=== PATIENT | male | born 1975 | race Caucasian/White ===

== ENCOUNTER 2023-02-09 07:28 | Outpatient (OUT) | payer OTHER, SELFPAY ==
--- NOTE | 2023-02-09 07:35 | CA_ITS ---
[facility] Test Date: 2023-02-27 Pat Name: BHAKTI RINCON Department: Room: - Gender: Male [employer]: : 1975 Requested By: KARLY CONRAD Order Number: [id number] Reading MD: RICKIE PHAN Interpretive Statements Predominant rhythm is sinus with average rate of 60 bpm Tachycardia - max rate of 173 bpm - 3 episodes of PSVT w/ longest duration of 6 [id number] 57sec w/ rate of 135-173 bpm - longest episode of Bradycardia - min rate of 34 bpm, occurring during sleep - longest episdoe of 1h 22min 1s w/ rate of 42-52 bpm Ventricular ectopy - 1,732 total (<1%) - 1,694 PVC - 26 couplets - 12 bigeminy Patient triggered events: 6 - associated w/ palpitations - associatd with rate of 54, 52 and the remainder NSR Impression Predominant rhythm is sinus with average rate of 60 bpm Fastest rate of 173 bpm and slowest 34 bpm 1,694 PVC< 26 couplets, 12 bigeminy No blocks or pauses Electronically Signed On 03-02-2023 7:26:25 EDT by RICKIE PHAN
== END 2023-02-09 07:29 | disposition home or self-care (01) ==
LOC: CARD 07:31
PROVIDERS: PCP Family Medicine; Visit Provider Family Medicine
DX: R00.2 Palpitations (principal)
CPT/HCPCS: 93246

== ENCOUNTER 2023-03-28 06:55 | Outpatient (OUT) | payer OTHER, SELFPAY ==
--- NOTE | 2023-03-28 07:54 | CA_ITS ---
Patient: BHAKTI RINCON Exam Date: 03/28/2023 : 1975 Gender:M Ordering : DYLON AMBROSE Admission #: [id number] Family : Order #: [id number] CLICK HERE TO VIEW EXAM ECHOCARDIOGRAM REPORT PROCEDURE: CA ECHO DOPPLER COMPLETE INDICATIONS: Paroxysmal SVT COMPARISON: None. DESCRIPTION: COMPLETE ECHOCARDIOGRAM Real-time transthoracic echocardiography with 2D, M-mode, spectral and color flow Doppler performed. QUALITY: Technical quality was excellent. LEFT VENTRICLE: Normal chamber size. Normal left ventricular wall thickness. LV EF: Global left ventricular systolic function is normal. Calculated left ventricular ejection fraction is 66%. DIASTOLIC: Normal diastolic function. ATRIAL SEPTUM: Inadequately seen. LEFT ATRIUM: Normal chamber size. RIGHT ATRIUM: Mild dilatation. RIGHT VENTRICLE: Normal chamber size. Normal systolic function. TRICUSPID VALVE: Normal mobility and thickness. No stenosis with trivial regurgitation. No evidence of pulmonary hypertension. RVSP 27mmHg MITRAL VALVE: Normal mobility and thickness. No evidence of mitral valve stenosis. There is no mitral annular calcification. Trivial mitral regurgitation. AORTIC VALVE: Normal trileaflet appearance. No visible sclerosis. Normal leaflet mobility. No evidence of aortic valve stenosis. No aortic regurgitation. AORTIC ROOT: Normal diameter and appearance. PULMONIC VALVE: Normal thickness and mobility. No stenosis. Trivial regurgitation. PERICARDIUM: No evidence of pericardial effusion. IVC: Collapses with inspirations. Normal size. CONCLUSION: Global left ventricular systolic function is normal; visually estimated ejection fraction is 60 to 65%. No wall motion abnormalities. Normal diastolic function. The right atrium is mildly dilated. The right ventricle is normal in size and systolic function. No significant valvular abnormalities. Adult Echocardiography Procedure Report Left Ventricle LVEDD (3.7 - 5.6 cm): 5.48 cm LVESD (2.2 - 4.0 cm): 3.41 cm LVIVS thickness (0.6 - 1.2 cm): 0.92 cm LVPW thickness (0.5 - 1.0 cm): 0.86 cm e': 0.15 m/s E - e': 4.13 LVOT Max Gradient: 5.33 mm[Hg] LVOT Area (cm2): 1.15 m/s Peak Velocity (LVOT): 1.15 m/s Mean Velocity (LVOT): 0.74 m/s LVOT Diameter 2.14 cm Left Ventricular Ejection Fraction: 66.46 % Left Atrium LA Volume Index (2D A2C): 27.52 ml/m2 Left Atrium Systolic Dimension: 3.16 cm Mitral Valve MV E to A Ratio: 1.52 Mitral Valve A-Wave Peak Velocity: 0.42 m/s Mitral Valve E-Wave Peak Velocity: 0.64 m/s Right Ventricle RV Internal Diastolic Dimension: 3.16 cm Aorta AO Root Diam: 3.04 cm Ascending Ao Diam: 3.30 cm Aortic Valve AoV Area (Peak Storm): 3.34 cm2, 3.34 cm2 AoV Area (VTI): 2.97 cm2, 2.97 cm2 Peak Velocity(Antegrade Flow): 1.24 m/s Peak Gradient(Antegrade Flow): 6.18 mm[Hg] Mean Velocity(Antegrade Flow): 0.92 m/s Mean Gradient(Antegrade Flow): 3.86 mm[Hg] Velocity Time Integral: 30.68 cm Tricuspid Valve Peak Velocity (Regurgitant Flow): 2.37 m/s, 2.32 m/s, 2.44 m/s Pulmonic Valve Peak Velocity: 0.91 m/s Peak Gradient: 3.16 mm[Hg], 3.41 mm[Hg] Right Atrium Right Atrium Systolic Pressure: 69.12 ml, 69.12 ml Dictated by: Olimpia Liu M.D. on 03/31/2023 at 14:47 Approved by: Olimpia Liu M.D. on 03/31/2023 at 14:49
== END 2023-03-28 06:56 | disposition home or self-care (01) ==
LOC: CARD 06:55
PROVIDERS: PCP Family Medicine; Visit Provider Nurse Practitioner
DX: I47.1 Supraventricular tachycardia (principal)
CPT/HCPCS: 93306